=== PATIENT | female | born 1965 | race Caucasian/White ===

== ENCOUNTER 2024-12-12 13:16 | Day surgery (SDC) | payer OTHER ==
[2024-12-12] MEDS ORDERED: LIDOCAINE HCL 2% 100 MG/5 ML IJ ONE (13:17)
[2024-12-12] MEDS ORDERED: propofoL IV ONE (15:38)
--- NOTE | 2024-12-12 17:02 | XRAY ---
Indication: Bilateral L4-S1 MBB. Intraoperative fluoroscopy provided for 18 seconds. Single digital spot image submitted for interpretation demonstrates posterior needle tips projecting over expected left and right L4-S1 nerve roots. Correlate with intraoperative findings/report.
--- NOTE | 2024-12-12 17:09 | XRAY ---
18 seconds of fluoroscopy was used in surgery for a bilateral L4-S1 MBB.
== END 2024-12-12 16:15 | disposition home or self-care (01) ==
LOC: SDC-PAIN 13:16
PROVIDERS: ATTEND Psychiatry & Neurology Pain Medicine
DX: M47.816 Spondylosis without myelopathy or radiculopathy, lumbar region (principal)
CPT/HCPCS: 64493; 64494; 72020; 77002; J2704

== ENCOUNTER 2024-12-27 06:55 | Day surgery (SDC) | payer OTHER ==
[2024-12-27] MEDS ORDERED: BUPIVACAINE 0.5% VIAL IJ ONE ×2 (06:56)
[2024-12-27] MEDS ORDERED: methylPREDNISolone acetate IM ONE (06:56)
[2024-12-27] MEDS ORDERED: LIDOCAINE HCL 1% 50 MG/5 ML VL IJ ONE (06:56)
[2024-12-27] MEDS ORDERED: propofoL IV ONE (08:28)
--- NOTE | 2024-12-27 20:51 | XRAY ---
Indication: Bilateral L4-S1 MBB. Intraoperative fluoroscopy provided for 19 seconds. Single digital spot image submitted for interpretation demonstrates posterior needle tips projecting over expected left and right L4-S1 nerve roots. Correlate with intraoperative findings/report.
--- NOTE | 2024-12-27 21:51 | XRAY ---
19 seconds of fluoroscopy was used in surgery for a bilateral L4-S1 MBB.
== END 2024-12-27 08:52 | disposition home or self-care (01) ==
LOC: SDC-PAIN 06:55
PROVIDERS: ATTEND Psychiatry & Neurology Pain Medicine
DX: M47.816 Spondylosis without myelopathy or radiculopathy, lumbar region (principal); R73.03 Prediabetes
CPT/HCPCS: 64493; 64494; 72020; 77002; 82947; J1010; J2704

== ENCOUNTER 2025-01-09 09:24 | Day surgery (SDC) | payer OTHER ==
[2025-01-09] MEDS ORDERED: BUPIVACAINE 0.5% VIAL IJ ONE (09:25)
[2025-01-09] MEDS ORDERED: LIDOCAINE HCL 1% AMPUL 5 ML IJ ONE (09:25)
[2025-01-09] MEDS ORDERED: Depo-Medrol 40 MG/ML IM ONE (09:25)
[2025-01-09] MEDS ORDERED: Lactated Ringers 500 ML IV ONE (09:32)
[2025-01-09] MEDS ORDERED: propofoL IV ONE ×2 (11:03→11:09)
--- NOTE | 2025-01-09 11:59 | XRAY ---
Indication: Right L4-S1 RFA. Intraoperative fluoroscopy provided for 32 second. 4 digital spot image submitted for interpretation demonstrates posterior needle tips project over expected right L4-S1 nerve roots. Correlate with intraoperative findings/report.
--- NOTE | 2025-01-09 14:44 | XRAY ---
32 seconds of fluoroscopy was used in surgery for a right L4-S1 RFA.
== END 2025-01-09 11:35 | disposition home or self-care (01) ==
LOC: SDC-PAIN 09:24
PROVIDERS: ATTEND Psychiatry & Neurology Pain Medicine
DX: M47.816 Spondylosis without myelopathy or radiculopathy, lumbar region (principal); R73.03 Prediabetes
CPT/HCPCS: 64635; 64636; 72100; 77002; 82947; J2704

== ENCOUNTER 2025-01-10 09:11 | Day surgery (SDC) | payer OTHER ==
[2025-01-10] MEDS ORDERED: LIDOCAINE HCL 1% 50 MG/5 ML VL IJ ONE (09:12)
[2025-01-10] MEDS ORDERED: LIDOCAINE HCL 2% 100 MG/5 ML IJ ONE (09:12)
[2025-01-10] MEDS ORDERED: methylPREDNISolone acetate IM ONE (09:12)
[2025-01-10] MEDS ORDERED: BUPIVACAINE 0.5% VIAL IJ ONE (09:12)
[2025-01-10] MEDS ORDERED: Lactated Ringers 500 ML IV ONE (10:01)
[2025-01-10] MEDS ORDERED: propofoL IV ONE ×2 (11:31→11:38)
--- NOTE | 2025-01-10 13:17 | XRAY ---
Indication: Left L4-S1 RFA. Intraoperative fluoroscopy provided for 27 seconds. 3 digital spot image submitted for interpretation demonstrates posterior needle tips projecting over expected left L4-S1 nerve roots. Correlate with intraoperative findings/report.
--- NOTE | 2025-01-10 14:52 | XRAY ---
27 seconds of fluoroscopy was used in surgery for a left L4-S1 RFA.
== END 2025-01-10 12:03 | disposition home or self-care (01) ==
LOC: SDC-PAIN 09:11
PROVIDERS: ATTEND Psychiatry & Neurology Pain Medicine
DX: M47.817 Spondylosis without myelopathy or radiculopathy, lumbosacral region (principal); R73.03 Prediabetes
CPT/HCPCS: 64635; 64636; 72100; 77002; 82947; J1010; J2704

== ENCOUNTER 2025-03-06 09:07 | Day surgery (SDC) | payer OTHER ==
[2025-03-06] MEDS ORDERED: methylPREDNISolone acetate IM ONE (09:08)
[2025-03-06] MEDS ORDERED: BUPIVACAINE 0.5% VIAL IJ ONE (09:08)
[2025-03-06] MEDS ORDERED: propofoL IV ONE (11:08)
[2025-03-06] MEDS ORDERED: Lactated Ringers 1,000 ML IV ONE (11:13)
--- NOTE | 2025-03-06 12:25 | XRAY ---
Indication: Right ischial bursa injection. Intraoperative fluoroscopy provided for 12 seconds. Single digital spot image submitted for interpretation demonstrates posterior needle tip projecting over right inferior ischial tuberosity. Small amount of contrast injected for needle tip placement. Correlate with intraoperative findings/report.
--- NOTE | 2025-03-06 12:27 | XRAY ---
12 seconds of fluoroscopy was used in surgery for a right ischial bursa injection.
== END 2025-03-06 11:40 | disposition home or self-care (01) ==
LOC: SDC-PAIN 09:07
PROVIDERS: ATTEND Psychiatry & Neurology Pain Medicine
DX: M70.71 Other bursitis of hip, right hip (principal); R73.03 Prediabetes
CPT/HCPCS: 20610; 72170; 77002; 82947; J1010; J2704; Q9966